=== PATIENT | female | born 1950 | race African-American/Black ===

== ENCOUNTER 2025-05-24 17:30 | Emergency (ER) | payer OTHER ==
[~2025-05-24] VITALS: Ht 167.6 cm; Wt 69.0 kg
[2025-05-24 17:31] VITALS: O2SAT 99
[2025-05-24 19:48] VITALS: BP 160/65; PULSE 78; RESP 14; TEMP 36.8; O2SAT 98
== END 2025-05-24 20:06 | disposition home or self-care (01) ==
LOC: ER 17:30
DX: S09.90XA Unspecified injury of head, initial encounter (principal); I10 Essential (primary) hypertension; E11.9 Type 2 diabetes mellitus without complications; E78.00 Pure hypercholesterolemia, unspecified; I25.10 Atherosclerotic heart disease of native coronary artery without angina pectoris; V49.40XA Driver injured in collision with unspecified motor vehicles in traffic accident, initial encounter; Y93.89 Activity, other specified; Y92.410 Unspecified street and highway as the place of occurrence of the external cause; Y99.8 Other external cause status
CPT/HCPCS: 73562; 99284